=== PATIENT | male | born 1980 | race Caucasian/White ===

== ENCOUNTER 2017-07-06 16:19 | Emergency (ER) | payer OTHER ==
[2017-07-06 16:35] VITALS: BP 140/75
[2017-07-06] MEDS ORDERED: Acetaminophen/oxyCODONE 325-5 MG Tab PO ONE ×2 (17:07→19:34)
--- NOTE | 2017-07-06 17:50 | EDM.PDOC ---
ED HPI GENERAL MEDICAL PROBLEM - General Chief Complaint: Lower Extremity Injury/Pain Stated Complaint: R LEG INJURY Time Seen by Provider: 07/06/17 16:55 Source of Information: Reports: Patient History Limitations: Reports: No Limitations - History of Present Illness INITIAL COMMENTS - FREE TEXT/NARRATIVE: 36-year-old male presents for evaluation and treatment of injury to the right medial knee. Patient reports at 1430 he was at work. He works on some oil rigs. He states that he was near a pipe with a metal cap On it. He reports that the pipe was under pressure. The cap flew off striking him in the right medial, proximal tibia. He has been unable to bear weight on the leg since. Reports initially his leg felt numb and tingly but this has now resolved. He is able to wiggle his toes. Reports pain and bruising to the right medial, proximal tibia. He has large amount of bruising and 2 small superficial abrasions to the area. He reports his tetanus is up-to-date. Onset: Today Location: Reports: Lower Extremity, Right Right Knee Pain Score (Numeric/FACES): 10 - Related Data Allergies Allergy/AdvReac Type Severity Reaction Status Date / Time No Known Allergies Allergy Verified 11/26/13 09:35 Home Meds: Home Meds . [No Known Home Meds] 07/06/17 [History] Past Medical History - Past Health History Medical/Surgical History: Denies Medical/Surgical History Social & Family History - Tobacco Use Smoking Status *Q: Current Every Day Smoker Years of Tobacco use: 20 Packs/Tins Daily: 1 - Caffeine Use Caffeine Use: Reports: Coffee, Energy Drinks - Alcohol Use Days Per Week of Alcohol Use: 0 - Recreational Drug Use Recreational Drug Use: No Review of Systems - Review of Systems Review Of Systems: See Below Musculoskeletal: Reports: Leg Pain (right medial knee) Skin: Reports: Bruising (right medial knee), Other (superficial abrasions) Neurological: Reports: Difficulty Walking. Denies: Numbness, Tingling ED EXAM, GENERAL - Physical Exam Exam: See Below Exam Limited By: No Limitations General Appearance: Alert, WD/WN, No Apparent Distress Respiratory/Chest: No Respiratory Distress Cardiovascular: Normal Peripheral Pulses, Regular Rate, Rhythm Peripheral Pulses: 3+: Posterior Tibial (L), Posterior Tibial (R), Dorsalis Pedis (L), Dorsalis Pedis (R) Extremities: Normal Capillary Refill, Limited Range of Motion (ROM testing deferred due to pain), Other (significan bruising and swelling to the right medial proximal tibia; bruising approimately 15 cm in diameter; 2 superficial 2 cm abrasions present to the area; reports significant pain to the right medial knee and proximal tibial with palpation) Psychiatric: Normal Affect, Normal Mood Skin Exam: Warm, Dry, Normal Color Course - Vital Signs Last Recorded V/S: Last Vital Signs Temp 36.8 C 07/06/17 16:34 Pulse 98 07/06/17 16:34 Resp 20 07/06/17 16:34 BP 140/75 07/06/17 16:34 Pulse Ox 100 07/06/17 16:34 - Orders/Labs/Meds Meds: Medications Discontinued Medications Generic Name Dose Route Start Last Admin Trade Name Freq PRN Reason Stop Dose Admin Oxycodone/Acetaminophen 1 tab 07/06/17 17:07 07/06/17 17:37 Percocet 325-5 Mg PO 07/06/17 17:08 1 tab ONETIME ONE Administration Oxycodone/Acetaminophen 1 tab 07/06/17 19:34 07/06/17 19:43 Percocet 325-5 Mg PO 07/06/17 19:35 1 tab ONETIME ONE Administration - Radiology Interpretation Free Text/Narrative:: xray of the right knee and tibia/ fibula shows a communited fracture of the right proximal tibial involving the tibial plateau CR of the right lower leg without contrast impression per Dr. Paniagua: Essentially nondisplaced comminuted fracture is identified involving the proximal diaphysis, metaphysis of the proximal tibia with articulation extension within the mid tibia near the tibial spines. Distal femur without fracture. Fibula without fracture. - Re-Assessments/Exams Free Text/Narrative Re-Assessment/Exam: 07/06/17 17:[address] Abdullahi, orthopedic surgeon on-call. He has seen the x- rays. Recommended a CT. Recommended crutches and a knee immobilizer. Follow-up on Tuesday. 07/06/17 19:[address] the [address] Disc for xrays and CT made and will be sent with the patient. Instructed to follow-up Tuesday. Rx for pain meds given. Placed in knee immobilizer and given crutches. Patient is a resident of [place] and would like to follow-up in [place]. Dr. Abdullahi Recommend Dr. I[facility] [place]. Departure - Departure Time of Disposition: 19:28 Disposition: Home, Self-Care 01 Condition: Fair Clinical Impression: Tibial plateau fracture, right - Discharge Information Instructions: Nondisplaced Tibial Plateau Fracture Referrals: PCP,None [Primary Care Provider] - Iban Gibbons MD [Ordering Only Provider] - Forms: ED Department Discharge Additional Instructions: Nonweightbearing at all times. Use the crutches and the knee immobilizer at all times. Ice the knee 4-6 times a day for 20-30 minutes. Percocet 1-2 tabs every 4-6 hours as needed for pain. Percocet can be habit- forming, I recommend you take as few of these as needed to control your pain. Do not drive or operate machinery within hours of taking Percocet. Follow-up with Dr. Iban [facility] at [facility] [place]. Please call tomorrow morning to let them know that you have a tibial plateau fracture. You were seen in the ER it was recommended to be seen on Tuesday. [address] [place] [id number] Please return to the ER for any problems, questions or concerns. you were given medication the ER that can affect your ability to drive and operate machinery. Do not drive or operate machinery within 12 hours of taking prescription narcotic pain medication.
--- NOTE | 2017-07-06 19:08 | CT ---
CT right tibia and fibula Technique: Multiple axial sections were obtained through the right tibia and fibula. Reconstructed coronal and sagittal images were obtained. Findings: Essentially nondisplaced comminuted fracture is identified involving the proximal diaphysis, metaphysis of the proximal tibia with articular extension within the mid tibia near the tibial spines. Distal femur appears without fracture. Fibula appears without fracture. Other portions of the tibia also appear without fracture. Soft tissue swelling is noted around the proximal tibial fracture. Impression: 1. Essentially nondisplaced and comminuted fracture within the proximal tibia as described above with articular extension. Diagnostic code #3
--- NOTE | 2017-07-07 06:34 | CR ---
Right knee: Four views of the right knee were obtained. Comminuted fracture with no significant displacement is identified within the proximal tibia. This involves the articular margin within the mid tibia involving the tibial spine. Medial and lateral joint spaces are maintained in height. Minimal joint effusion is seen. No acute fracture is seen within the distal femur or proximal fibula. Impression: 1. Essentially nondisplaced proximal tibial fracture as noted above. Diagnostic code #3
--- NOTE | 2017-07-07 06:34 | CR ---
Right tibia and fibula: Two views of the right tibia and fibula were obtained. Fracture is identified with comminution within the proximal tibia. Articular extension is seen within the mid tibia near the tibial spines. No additional fracture or other bony abnormality is seen. Impression: 1. Fracture which remains close to anatomic in alignment and is comminuted within the proximal tibia as described above. Diagnostic code #3
== END 2017-07-06 20:00 | disposition home or self-care (01) ==
LOC: JD.ED 16:19
DX: S82.141A Displaced bicondylar fracture of right tibia, initial encounter for closed fracture (principal); Y99.0 Civilian activity done for income or pay; F17.210 Nicotine dependence, cigarettes, uncomplicated; W22.8XXA Striking against or struck by other objects, initial encounter
CPT/HCPCS: 73564; 73590; 73700; 99284; A9270; 99283